=== PATIENT | female | born 1935 | race Caucasian/White ===

== ENCOUNTER → 2019-01-20 | Outpatient (CLI) | payer MEDICARE, OTHER ==
--- NOTE | 2019-01-20 14:23 | Diagnostic Imaging Report ---
Exam: KUB - 2 views Clinical History: Renal calculi. Comparison: None. Findings: Bowel gas obscures visualization of the kidneys. There is a 3 mm calcification overlying the right mid kidney and a 6 mm calcification overlying the left upper kidney. No evidence of calcification overlying the expected course of the ureters. Pelvic calcifications likely represent phleboliths. Nonobstructive bowel gas pattern. Diffuse osteopenia. No acute osseous abnormality. Impression: Limited examination due to bowel gas overlying the kidneys. Calcifications overlying the kidneys may represent enteric contents or nephrolithiasis. Signed by: Dr. Kd Novoa MD on 01/20/2019 2:19 PM
== END ==
LOC: EDSEX → RAD 13:37
PROVIDERS: ATTEND Urology
DX: N20.0 Calculus of kidney (principal)
CPT/HCPCS: 74018

== ENCOUNTER → 2019-02-10 | Outpatient (CLI) | payer MEDICARE, OTHER ==
--- NOTE | 2019-02-10 10:49 | Diagnostic Imaging Report ---
EXAM: CT Abdomen and Pelvis WITHOUT intravenous contrast INDICATION: Renal calculi COMPARISON: KUB of 01/20/2019 TECHNIQUE: Abdomen and pelvis were scanned utilizing a multidetector helical scanner from the lung base to the pubic symphysis without administration of IV contrast. Coronal and sagittal reformations were obtained. IV CONTRAST: None ORAL CONTRAST: None COMPLICATIONS: None RADIATION DOSE: Total DLP: 379.7 mGy*cm Dose modulation, iterative reconstruction, and/or weight based adjustment of the mA/kV was utilized to reduce the radiation dose to as low as reasonably achievable. FINDINGS: LOWER THORAX: Minimal dependent bibasilar subsegmental atelectasis. HEPATOBILIARY: No focal hepatic lesions. No biliary ductal dilatation. There is cholelithiasis in the nondilated gallbladder with no CT evidence of cholecystitis. SPLEEN: No splenomegaly. PANCREAS: No focal masses or ductal dilatation. ADRENALS: No adrenal nodules. KIDNEYS/URETERS: No hydronephrosis. There is a 4 mm nonobstructive calculus at the midpole of the right kidney. 2.5 cm right upper pole renal cyst. 9 mm hyperattenuating structure at the peripheral lower pole of left kidney could represent a hyperdense cyst. PELVIC ORGANS/BLADDER: Marked prostatomegaly measuring up to 8.9 cm causing posterior mass effect on the bladder. PERITONEUM / RETROPERITONEUM: No free air or fluid. LYMPH NODES: No lymphadenopathy. VESSELS: Atherosclerotic calcifications of the abdominal aorta and major branches. GI TRACT: Colonic diverticulosis with no CT evidence of diverticulitis. No bowel obstruction. BONES AND SOFT TISSUES: No acute osseous injury. Mild degenerative changes of the visualized spine. IMPRESSION: 4 mm nonobstructive calculus at the midpole the right kidney. No hydronephrosis. Marked prostatomegaly. Signed by: Timi Sampson MD on 02/10/2019 10:46 AM
== END ==
LOC: CT 09:40
PROVIDERS: ATTEND Urology
DX: N20.0 Calculus of kidney (principal)
CPT/HCPCS: 74176

== ENCOUNTER → 2020-02-17 | Outpatient (CLI) | payer MEDICARE, OTHER ==
--- NOTE | 2020-02-17 10:25 | Diagnostic Imaging Report ---
Exam: KUB -one view Indication: Renal calculus Comparison: KUB 08/18/2019, CT abdomen and pelvis 02/10/2019 Findings: Bowel gas and intraluminal contents obscure evaluation of the renal silhouettes for calculi. No radiographically apparent renal calculi. A new 4 mm calcific density in the right pelvis was not previously present and does not have a lucent center, possibly representing distal ureteral migration of the previously seen right renal calculus. Remaining phleboliths appear unchanged. Nonobstructive bowel gas pattern. No free air. No acute osseous injury. Mild diffuse osteopenia and scattered degenerative changes. Impression: New 4 mm calcific density in the right pelvis was not previously present and does not have a lucent center, possibly representing distal ureteral migration of the previously seen right renal calculus. Signed by: Timi Sampson MD on 02/17/2020 10:22 AM
== END ==
LOC: RAD 09:30
PROVIDERS: ATTEND Urology
DX: N20.0 Calculus of kidney (principal)
CPT/HCPCS: 74018

== ENCOUNTER → 2020-03-09 | Outpatient (CLI) | payer MEDICARE, OTHER ==
--- NOTE | 2020-03-09 11:40 | Diagnostic Imaging Report ---
EXAM: CT Abdomen and Pelvis WITHOUT intravenous contrast INDICATION: Renal calculus COMPARISON: KUB 02/17/2020, CT abdomen and pelvis 02/10/2019 TECHNIQUE: Abdomen and pelvis were scanned utilizing a multidetector helical scanner from the lung base to the pubic symphysis without administration of IV contrast. Coronal and sagittal reformations were obtained. IV CONTRAST: None ORAL CONTRAST: Water COMPLICATIONS: None RADIATION DOSE: Total DLP: 366 mGy*cm Dose modulation, iterative reconstruction, and/or weight based adjustment of the mA/kV was utilized to reduce the radiation dose to as low as reasonably achievable. FINDINGS: LOWER THORAX: Normal. HEPATOBILIARY: No focal liver lesion. Cholelithiasis without CT evidence of cholecystitis. SPLEEN: No splenomegaly. PANCREAS: No focal masses or ductal dilatation. ADRENALS: No adrenal nodules. KIDNEYS/URETERS: No hydronephrosis. 2 mm nonobstructive left midpole renal calculus. 3 mm nonobstructive right lower pole renal calculus. Bilateral simple appearing renal cysts measure up to 2.2 cm on the right and 1.3 cm on the left. Unchanged subcentimeter left hyperdense cyst. PELVIC ORGANS/BLADDER: The prostate is severely enlarged, measuring up to 8.2 x 8.1 x 7.3 cm (volume estimate of 253cc) and exerting mass effect on the bladder. Phleboliths in the pelvis. PERITONEUM / RETROPERITONEUM: No free air or fluid. LYMPH NODES: No lymphadenopathy. VESSELS: Moderate atherosclerotic calcifications of the nonaneurysmal abdominal aorta and major branches. GI TRACT: No abnormal bowel thickening. No bowel obstruction. BONES AND SOFT TISSUES: Unremarkable. IMPRESSION: Nonobstructive renal calculi measure up to 2 mm on the left and 3 mm on the right. Severe prostatomegaly measures up to 8.2 x 8.1 x 7.3 cm (volume estimate of 253 cc). Bilateral renal cysts. Signed by: Timi Sampson MD on 03/09/2020 11:37 AM
== END ==
LOC: CT 10:29
PROVIDERS: ATTEND Urology
DX: N20.0 Calculus of kidney (principal)
CPT/HCPCS: 74176

== ENCOUNTER → 2022-11-16 | Outpatient (CLI) | payer MEDICARE, OTHER | LOC: CT 07:33 | PROVIDERS: ATTEND Urology | DX: N20.0 Calculus of kidney (principal); N40.0 Benign prostatic hyperplasia without lower urinary tract symptoms; K80.20 Calculus of gallbladder without cholecystitis without obstruction; I51.7 Cardiomegaly | CPT/HCPCS: 74176 ==

== ENCOUNTER 2023-01-10 06:36 | Inpatient (IN) | payer MEDICARE, OTHER ==
[2023-01-05 12:32] LABS: BASOPHILS # (AUTO) 0.1 (0.0-0.1); BASOPHILS % 0.8 % (0.0-1.0); EOSINOPHILS # (AUTO) 0.1 (0.0-0.4); EOSINOPHILS % 2.2 % (0.0-6.0); HEMATOCRIT 38.5 % (38.2-49.6); HEMOGLOBIN 12.5 g/dL (14.0-18.0); LYMPHOCYTES # (AUTO) 1.4 (1.0-3.2); LYMPHOCYTES % 21.6 % (18.0-39.1); MEAN CORPUSCULAR HEMOGLOBIN 31.7 pg (28-32); MEAN CORPUSCULAR HGB CONC 32.5 g/dL (31-35); MEAN CORPUSCULAR VOLUME 97.7 fL (81-99); MONOCYTES # (AUTO) 0.4 (0.2-0.8); MONOCYTES % 6.7 % (4.4-11.3); NEUTROPHILS # (AUTO) 4.4 (2.1-6.9); NEUTROPHILS % 68.5 % (38.7-80.0); PLATELET COUNT 212 x10e3/uL (140-360); RED BLOOD COUNT 3.94 x10e6/uL (4.3-5.7); RED CELL DISTRIBUTION WIDTH 12.6 % (11.7-14.4)
[2023-01-05 12:51] LABS: ANION GAP 13.3 mmol/L (8-16); CALCIUM 9.4 mg/dL (8.4-10.2); CREATININE, SERUM 1.48 mg/dL (0.72-1.25); POTASSIUM 4.3 mmol/L (3.5-5.1)
[2023-01-10] VITALS (8 sets, daily range): BP systolic 134–138; BP diastolic 69–82; PULSE 61–82; RESP 16–18; TEMP 97.9–98.6; O2SAT 98–100
[~2023-01-10] VITALS: Ht 188 cm; Wt 85.7 kg
[~2023-01-10 06:36] MED LIST: ACETAMINOPHEN 1000 MG/100 ML 100 ML IV ONE; ATORVASTATIN CA10 MG PO; ELIQUIS5 MG PO; FINASTERIDE5 MG PO; FLOMAX0.4 MG PO; GLIPIZIDE5 MG PO; JANUVIA100 MG PO; LISINOPRIL10 MG PO; METFORMIN HCL850 MG PO; MULTI-VITAMIN1 EACH PO
[2023-01-10] MEDS ORDERED: SODIUM CHLORIDE 0.9% 1000ML 1,000 ML ONE (06:48)
[2023-01-10] MEDS ORDERED: SUGAMMADEX SODIUM 200 MG/2 ML VIAL IV ONE (07:07)
[2023-01-10] MEDS ORDERED: Ampicillin INJ 1 GM Vial ONE (07:08)
[2023-01-10] MEDS ORDERED: GENTAMICIN 80MG/NS 100 ML 200 ML IV ONE (07:08)
[2023-01-10] MEDS ORDERED: IOPAMIDOL 610MG/1ML 300 MG/ML VIAL IV ONE (08:26)
[2023-01-10] MEDS: FENTANYL CITRATE/PF 100MCG/2 ML INJ ONE ×2 (11:43→11:51)
[2023-01-10] MEDS ORDERED: ONDANSETRON HCL INJ 2MG/ML 2ML 2 MG/ML VIAL IV PRN (12:30)
[2023-01-10] MEDS ORDERED: ACETAMINOPHEN 1000 MG/100 ML IV PRN (12:30)
[2023-01-10 12:46] LABS: BASOPHILS % 0.2 % (0.0-1.0); EOSINOPHILS % 0.5 % (0.0-6.0); HEMATOCRIT 31.3 % (38.2-49.6); HEMOGLOBIN 9.9 g/dL (14.0-18.0); LYMPHOCYTES # (AUTO) 0.7 (1.0-3.2); MEAN CORPUSCULAR HEMOGLOBIN 31.7 pg (28-32); MEAN CORPUSCULAR HGB CONC 31.6 g/dL (31-35); MEAN CORPUSCULAR VOLUME 100.3 fL (81-99); MONOCYTES # (AUTO) 0.1 (0.2-0.8); MONOCYTES % 0.8 % (4.4-11.3); NEUTROPHILS # (AUTO) 7.5 (2.1-6.9); NEUTROPHILS % 89.9 % (38.7-80.0); PLATELET COUNT 131 x10e3/uL (140-360); RED BLOOD COUNT 3.12 x10e6/uL (4.3-5.7); RED CELL DISTRIBUTION WIDTH 12.7 % (11.7-14.4)
[2023-01-10] MEDS: PHENAZOPYRIDINE HCL 100 MG TAB PO PRN ×2 (12:47→21:22)
[2023-01-10] MEDS ORDERED: FENTANYL CITRATE/PF 100MCG/2 ML INJ ONE (12:50)
[2023-01-10] MEDS ORDERED: GLYCOPYRROLATE INJ 0.2 MG/ML VIAL ONE (13:08)
[2023-01-10] MEDS ORDERED: SEVOFLURANE INHAL SOLN 250 ML PEN BTL ONE (13:08)
[2023-01-10] MEDS ORDERED: ONDANSETRON HCL INJ 2MG/ML 2ML 2 MG/ML VIAL ONE (13:08)
[2023-01-10] MEDS ORDERED: LIDOCAINE HCL 2% LOCAL INJ 5 ML SDV VIAL INJ ONE (13:08)
[2023-01-10] MEDS ORDERED: PROPOFOL IV EMULSION 10 MG/ML 20 ML VIAL ONE (13:08)
[2023-01-10] MEDS ORDERED: POVIDONE IODINE 0.05% 0.05 % ML PO ONE (13:08)
[2023-01-10] MEDS ORDERED: ROCURONIUM BROMIDE 10 MG/ML 5ML VIAL IV ONE (13:08)
[2023-01-10] MEDS ORDERED: PHENYLEPHRINE HCL 1% 10 MG/ML VIAL ONE (13:08)
[2023-01-10] MEDS ORDERED: NEOSTIGMINE 1 MG/ML 10ML VIAL ONE (13:08)
[2023-01-10] MEDS ORDERED: DEXAMETHASONE SOD PHOS INJ 4 MG/ML SDV ONE (13:08)
[2023-01-10 13:11] LABS: ANION GAP 10.7 mmol/L (8-16); CALCIUM 7.1 mg/dL (8.4-10.2); CREATININE, SERUM 1.01 mg/dL (0.72-1.25); POTASSIUM 4.7 mmol/L (3.5-5.1)
[2023-01-10] MEDS: MAGNESIUM OXIDE 400 MG TAB PO SCH (17:00)
[2023-01-10] MEDS: SODIUM CHLORIDE 0.9% 1000ML 1,000 ML IV SCH (17:10)
[2023-01-10] MEDS: DOCUSATE SODIUM 100 MG CAP PO SCH (17:12)
[2023-01-10] MEDS: ACETAMINOPHEN/CODEINE 300MG - 30MG TAB PO PRN (23:52)
[2023-01-11] VITALS (8 sets, daily range): BP systolic 134–179; BP diastolic 65–99; PULSE 78–102; RESP 16–18; TEMP 97.9–99.5; O2SAT 95–99
[2023-01-11] MEDS: DIPHENHYDRAMINE HCL 25 MG CAP PO PRN ×2 (02:13→20:14)
[2023-01-11 05:04] LABS: BASOPHILS % 0.3 % (0.0-1.0); EOSINOPHILS % 0.1 % (0.0-6.0); HEMATOCRIT 30.5 % (38.2-49.6); HEMOGLOBIN 9.7 g/dL (14.0-18.0); LYMPHOCYTES # (AUTO) 0.5 (1.0-3.2); LYMPHOCYTES % 4.5 % (18.0-39.1); MEAN CORPUSCULAR HEMOGLOBIN 31.6 pg (28-32); MEAN CORPUSCULAR HGB CONC 31.8 g/dL (31-35); MEAN CORPUSCULAR VOLUME 99.3 fL (81-99); MONOCYTES # (AUTO) 0.5 (0.2-0.8); MONOCYTES % 5.1 % (4.4-11.3); NEUTROPHILS # (AUTO) 9.3 (2.1-6.9); NEUTROPHILS % 89.4 % (38.7-80.0); PLATELET COUNT 143 x10e3/uL (140-360); RED BLOOD COUNT 3.07 x10e6/uL (4.3-5.7); RED CELL DISTRIBUTION WIDTH 12.7 % (11.7-14.4)
[2023-01-11 05:17] LABS: ANION GAP 10.8 mmol/L (8-16); CALCIUM 7.6 mg/dL (8.4-10.2); CREATININE, SERUM 1.34 mg/dL (0.72-1.25); POTASSIUM 4.8 mmol/L (3.5-5.1)
[2023-01-11] MEDS: SODIUM CHLORIDE 0.9% 1000ML 1,000 ML IV SCH ×2 (06:09→18:00)
[2023-01-11] MEDS: DOCUSATE SODIUM 100 MG CAP PO SCH ×2 (08:28→16:34)
[2023-01-11] MEDS: MAGNESIUM OXIDE 400 MG TAB PO SCH ×2 (08:29→16:35)
[2023-01-11] MEDS ORDERED: DEXTROSE 50% SYRINGE 50 ML IV PRN (09:00)
[2023-01-11 09:56] LABS: PHOSPHORUS 2.4 MG/DL (2.3-4.7)
[2023-01-11] MEDS ORDERED: MAGNESIUM SULFATE 2GM/50ML IV SCH (10:00)
[2023-01-11 10:15] LABS: HIV 1&2 AB SCREEN NON-REACTIVE (NONREACTIVE)
[2023-01-11] MEDS: TAMSULOSIN HCL 0.4 MG CAP PO SCH (10:35)
[2023-01-11] MEDS: FINASTERIDE 5 MG TAB PO SCH (10:35)
[2023-01-11] MEDS: ACETAMINOPHEN/CODEINE 300MG - 30MG TAB PO PRN ×3 (10:35→21:06)
[2023-01-11] MEDS: MAGNESIUM SULFATE 2GM/50ML 50 ML IV SCH ×2 (10:36→13:29)
[2023-01-11] MEDS: INSULIN LISPRO 100 UNIT/1 ML 3ML VIAL SQ SCH ×3 (11:30→21:00)
[2023-01-11] MEDS: HYDRALAZINE HCL 20 MG/ML VIAL IV PRN (16:42)
[2023-01-11] MEDS ORDERED: LISINOPRIL 20 MG TAB PO SCH (21:00)
[2023-01-12] VITALS: BP 159/79; PULSE 70; RESP 18; TEMP 99; O2SAT 95
[2023-01-12] MEDS: DIPHENHYDRAMINE HCL 25 MG CAP PO PRN (00:54)
[2023-01-12 05:00] VITALS: BP 193/95; PULSE 89; RESP 18; TEMP 99.8; O2SAT 94
[2023-01-12] MEDS: ACETAMINOPHEN/CODEINE 300MG - 30MG TAB PO PRN (05:35)
[2023-01-12] MEDS: HYDRALAZINE HCL 20 MG/ML VIAL IV PRN (05:35)
[2023-01-12] MEDS: SODIUM CHLORIDE 0.9% 1000ML 1,000 ML IV SCH (05:35)
[2023-01-12 05:49] LABS: BASOPHILS % 0.2 % (0.0-1.0); EOSINOPHILS % 0.3 % (0.0-6.0); HEMATOCRIT 29.9 % (38.2-49.6); HEMOGLOBIN 9.8 g/dL (14.0-18.0); LYMPHOCYTES # (AUTO) 0.6 (1.0-3.2); LYMPHOCYTES % 6.3 % (18.0-39.1); MEAN CORPUSCULAR HGB CONC 32.8 g/dL (31-35); MEAN CORPUSCULAR VOLUME 97.7 fL (81-99); MONOCYTES # (AUTO) 0.6 (0.2-0.8); MONOCYTES % 6.4 % (4.4-11.3); NEUTROPHILS # (AUTO) 8.4 (2.1-6.9); NEUTROPHILS % 86.4 % (38.7-80.0); PLATELET COUNT 111 x10e3/uL (140-360); RED BLOOD COUNT 3.06 x10e6/uL (4.3-5.7); RED CELL DISTRIBUTION WIDTH 12.9 % (11.7-14.4)
[2023-01-12 06:34] LABS: ANION GAP 12.3 mmol/L (8-16); CALCIUM 7.8 mg/dL (8.4-10.2); CREATININE, SERUM 1.07 mg/dL (0.72-1.25); POTASSIUM 4.3 mmol/L (3.5-5.1)
[2023-01-12] MEDS: INSULIN LISPRO 100 UNIT/1 ML 3ML VIAL SQ SCH ×3 (07:30→11:51)
[2023-01-12 08:32] VITALS: BP 161/79; PULSE 84; RESP 16; TEMP 99.1; O2SAT 95
[2023-01-12] MEDS ORDERED: MAGNESIUM SULFATE 2GM/50ML IV ONE (08:45)
[2023-01-12] MEDS: FINASTERIDE 5 MG TAB PO SCH (09:06)
[2023-01-12] MEDS: DOCUSATE SODIUM 100 MG CAP PO SCH (09:06)
[2023-01-12] MEDS: MAGNESIUM OXIDE 400 MG TAB PO SCH (09:06)
[2023-01-12] MEDS: TAMSULOSIN HCL 0.4 MG CAP PO SCH (09:06)
[2023-01-12] MEDS ORDERED: MAGNESIUM SULFATE 2GM/50ML 50 ML IV ONE ×2 (09:30→11:30)
[2023-01-12] MEDS ORDERED: ONDANSETRON HCL 4 MG ORAL DISINTEGRATING TAB PO PRN (10:45)
[2023-01-12 12:05] VITALS: BP 131/70; PULSE 77; RESP 16; TEMP 98.8; O2SAT 97
== END 2023-01-12 12:57 | disposition home or self-care (01) | DRG 713 ==
LOC: OR 06:36 → PACU V 12:26 → MED/SURG 13:33
PROVIDERS: ADMIT Internal Medicine; ATTEND Internal Medicine
PROC: 0TJB8ZZ Inspection of Bladder, Via Natural or Artificial Opening Endoscopic (ICD-10-PCS; 2023-01-10)
PROC: BT1D1ZZ Fluoroscopy of Right Kidney, Ureter and Bladder using Low Osmolar Contrast (ICD-10-PCS; 2023-01-10)
PROC: 0VT08ZZ Resection of Prostate, Via Natural or Artificial Opening Endoscopic (ICD-10-PCS; principal; 2023-01-10 08:54)
PROC: 0TCB8ZZ Extirpation of Matter from Bladder, Via Natural or Artificial Opening Endoscopic (ICD-10-PCS; 2023-01-10 08:54)
DX: N40.1 Benign prostatic hyperplasia with lower urinary tract symptoms (principal); N13.8 Other obstructive and reflux uropathy; N39.0 Urinary tract infection, site not specified; R31.29 Other microscopic hematuria; N21.0 Calculus in bladder; M19.90 Unspecified osteoarthritis, unspecified site; E11.9 Type 2 diabetes mellitus without complications; I10 Essential (primary) hypertension; E78.5 Hyperlipidemia, unspecified; E83.42 Hypomagnesemia; R97.20 Elevated prostate specific antigen [PSA]; N28.1 Cyst of kidney, acquired; R00.1 Bradycardia, unspecified
CPT/HCPCS: 36415; 71046; 74420; 80048; 82948; 83735; 84100; 85025; 87390; 88300; 88305; 93005; 94799; 96361; C1758; G0433; G0435; J0696; J1100; J1580; J2001; J2370; J2405; J2710; J3475; J7030